=== PATIENT | male | born 1955 | race Caucasian/White ===

== ENCOUNTER 2022-04-11 10:33 | Emergency (ER) | payer OTHER ==
[2022-04-11] VITALS (14 sets, daily range): BP systolic 111–130; BP diastolic 75–89
== END 2022-04-11 14:48 | disposition home or self-care (01) | DRG 605 ==
LOC: ED 10:33
PROC: 0HQ0XZZ Repair Scalp Skin, External Approach (ICD-10-PCS; principal; 2022-04-11)
DX: S01.91XA Laceration without foreign body of unspecified part of head, initial encounter (principal); Y93.59 Activity, other involving other sports and athletics played individually; Y93.F9 Activity, other caregiving

== ENCOUNTER 2022-04-13 12:57 | Emergency (ER) | payer OTHER ==
[2022-04-13] VITALS (15 sets, daily range): BP systolic 114–132; BP diastolic 73–92
[~2022-04-13] VITALS: Ht 170.2 cm; Wt 75.0 kg
[2022-04-13 15:37] LABS: HEMATOCRIT 45.1 % (39.0-50.0); HEMOGLOBIN 15.4 g/dl (14.0-18.0); IMMATURE GRANULOCYTES 0.1 % (0.0-5.0); MEAN CELL VOLUME 94.2 fL CALC (80.0-100.0); MEAN CORPUSCULAR HGB 32.2 pG CALC (26.0-32.0); MEAN CORPUSCULAR HGB CONC 34.1 g/dL CAL (32.0-36.0); NEUT# 6.51 thou/uL (1.82-7.42); RED BLOOD COUNT 4.79 mill/uL (4.70-6.10)
[2022-04-13 15:49] LABS: ANION GAP 11 (6-22 (CALC)); BUN 15 mg/dL (8-23); BUN/CREATININE RATIO 15 (12-20 (CALC)); CARBON DIOXIDE 29 mmol/l (22-30); CHLORIDE 104 mmol/l (95-108); GFR FOR AFR.AMER. > 60 ML/MIN (>=60 (CALC)); GFR OTHER RACES > 60 ML/MIN (>=60 (CALC)); POTASSIUM 4.5 mmol/l (3.5-5.1); SODIUM 139 mmol/l (137-146)
== END 2022-04-13 18:17 | disposition home or self-care (01) | DRG 951 ==
LOC: ED 12:57
PROVIDERS: Emergency Medicine
DX: Z48.02 Encounter for removal of sutures (principal)

== ENCOUNTER 2022-04-18 08:52 | Emergency (ER) | payer OTHER ==
[~2022-04-18] VITALS: Ht 170.2 cm; Wt 75.0 kg
[2022-04-18 08:57] VITALS: BP 119/82
[2022-04-18 09:00] VITALS: BP 114/85
[2022-04-18] MEDS ORDERED: AMOXICILLIN500 MG PO (09:11)
[2022-04-18 09:30] VITALS: BP 113/73
[2022-04-18 09:35] VITALS: BP 113/73
== END 2022-04-18 09:44 | disposition home or self-care (01) | DRG 950 ==
LOC: ED 08:52
DX: S01.81XD Laceration without foreign body of other part of head, subsequent encounter (principal); X58.XXXD Exposure to other specified factors, subsequent encounter